=== PATIENT | female | born 1980 | race Caucasian/White ===

== ENCOUNTER 2017-04-15 07:02 | Emergency (ER) | payer MEDICAID, OTHER ==
[2017-04-15 07:02] VITALS: BMI 20.5
[2017-04-15 07:10] VITALS: RESP 16; TEMP 99.2; O2SAT 98
--- NOTE | 2017-04-15 07:34 | C.PDOC ---
History Of Present Illness 37 y/o female presents to ED with complaints of headache, sore throat, dry cough , bilateral knee pain and body aches since yesterday. Patient also reports nausea and vomiting over night. Contrary to triage denies abdominal pain. Patient denies fever, chills, dizziness, recent travel or any other complaints at this time. Time Seen by Provider: 04/15/17 07:17 Chief Complaint (Nursing): Abdominal Pain History Per: Patient History/Exam Limitations: no limitations Onset/Duration Of Symptoms: Days Current Symptoms Are (Timing): Still Present Associated Symptoms: Sore Throat, Cough, Vomiting Past Medical History Reviewed: Historical Data, Nursing Documentation, Vital Signs Vital Signs: Last Vital Signs Temp 99.2 F 04/15/17 07:07 Pulse 116 H 04/15/17 07:07 Resp 16 04/15/17 07:07 BP 101/72 04/15/17 07:07 Pulse Ox 98 04/15/17 09:12 - Medical History PMH: No Chronic Diseases Surgical History: Cholecystectomy Family History: States: No Known Family Hx - Social History Hx Tobacco Use: No Hx Alcohol Use: No Hx Substance Use: No - Immunization History Hx Tetanus Toxoid Vaccination: No Hx Influenza Vaccination: No Hx Pneumococcal Vaccination: No Review Of Systems Constitutional: Negative for: Fever, Chills Cardiovascular: Negative for: Chest Pain Respiratory: Positive for: Cough Gastrointestinal: Positive for: Vomiting Musculoskeletal: Positive for: Leg Pain Skin: Negative for: Rash Neurological: Positive for: Headache. Negative for: Weakness, Numbness, Dizziness Physical Exam - Physical Exam Appears: Non-toxic, No Acute Distress Skin: Normal Color, Warm, Dry, No Rash Head: Atraumatic, Normacephalic Eye(s): bilateral: Normal Inspection, EOMI Ear(s): Bilateral: Normal (no erythema) Nose: Normal Oral Mucosa: Moist Throat: Erythema, No Exudate, No Drooling Neck: Normal ROM, Supple Chest: Symmetrical Cardiovascular: Rhythm Regular Respiratory: Normal Breath Sounds, No Rales, No Rhonchi, No Wheezing Gastrointestinal/Abdominal: Soft, No Tenderness, No Guarding, No Rebound Extremity: Normal ROM, Capillary Refill (<2 seconds) Neurological/Psych: Oriented x3, Normal Speech Gait: Steady ED Course And Treatment O2 Sat by Pulse Oximetry: 98 (RA) Pulse Ox Interpretation: Normal Medical Decision Making Medical Decision Making: Impression: body aches, knee pain, sore throat, cough, vomiting Plan: * flu * strep * tylenol * zofran * UA, preg Progress: Labs reviewed and negative for flu and strep. UA and WNL and negative. Re-evaluation Time: 08:48 Patient feels better. She has no fever and resting comfortably in no distress. Discussed results with patient. Counseling was provided regarding the diagnosis and prognosis. All questions answered and there is agreement with the plan to discharge home with instructions. Patient stable for discharge. Return if symptoms persist or worsen. Reassessment Condition: Re-examined, Improved Dispo: Discharge home. Patient was recommended to follow up with PCP or clinic in 1-2 days. Return to ED if symptoms worsen. Disposition Counseled Patient/Family Regarding: Diagnosis, Need For Followup, Rx Given - Disposition Referrals: [facility] [Outside] [facility] [Outside] [facility] [Outside] Disposition: HOME/ ROUTINE Disposition Time: 08:58 Condition: STABLE Additional Instructions: Karime resultados para estreptococo y orina fueron negativos [place] Tylenol segn sea necesario para el dolor [place] Zofran segn sea necesario para las nuseas Realice un seguimiento con [place] mdico primario o clnica en 1 semana para edgar evaluacin adicional. Regrese al departamento de emergencia en cualquier momento si los sntomas persisten o empeoran. 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 - Scribe Statement The provider has reviewed the documentation as recorded by the Jeannieibshanti Roberts All medical record entries made by the Scribe were at my direction and personally dictated by me. I have reviewed the chart and agree that the record accurately reflects my personal performance of the history, physical exam, medical decision making, and the department course for this patient. I have also personally directed, reviewed, and agree with the discharge instructions and disposition.
[2017-04-15 08:37] LABS: RBC URINE 5 /hpf (0-3); URINE BILIRUBIN NEGATIVE (NEGATIVE); URINE BLOOD NEGATIVE (NEGATIVE); URINE COLOR Yellow (YELLOW); URINE GLUCOSE (UA) NORMAL (Normal); URINE KETONE TRACE mg/dL (NEGATIVE); URINE LEUKOCYTE ESTERASE NEG Leu/uL (Negative); URINE PROTEIN 1+ mg/dL (NEGATIVE); URINE UROBILINOGEN NORMAL mg/dL (0.2-1.0); WBC URINE 1 /hpf (0-5)
[2017-04-15 09:19] VITALS: BP 92/54; PULSE 94
== END 2017-04-15 09:18 | disposition home or self-care (01) ==
LOC: C.ER 07:02
DX: B34.9 Viral infection, unspecified (principal); M25.50 Pain in unspecified joint